=== PATIENT | female | born 1980 | race Caucasian/White ===

== ENCOUNTER 2020-07-08 13:47 | Emergency (ER) | payer SELFPAY ==
[~2020-07-08] VITALS: Ht 167.6 cm; Wt 60.0 kg
[2020-07-08] MEDS ORDERED: NALOXONE HCL 0.4 MG/ML 1ML VIAL IV ONE (14:15)
[2020-07-08] MEDS ORDERED: NALOXONE HCL 1 MG/ML 2ML VIAL IV ONE (14:45)
[2020-07-08 15:44] LABS: BASOPHILS % 0.3 % (0.0-2.0); EOSINOPHILS % 0.8 % (0.0-5.0); HEMATOCRIT. 42.7 % (36.0-48.0); HEMOGLOBIN. 14.9 g/dL (12.0-16.0); LYMPHOCYTES % 30.6 % (20.0-50.0); MEAN CORPUSCULAR HEMOGLOBIN 34.8 pg (28.0-32.0); MEAN CORPUSCULAR VOLUME 100.2 fL (81.0-99.0); MONOCYTES % 7.8 % (2.0-8.0); NEUTROPHILS % 60.5 % (40.0-76.0); PLATELET 292 x1000/uL (130-400); RED BLOOD CELL COUNT 4.26 mill/uL (4.2-5.4); RED CELL DISTRIBUTION WIDTH 12.8 % (11.6-14.6)
[2020-07-08 15:47] LABS: CHLORIDE 108 mEq/L (98-107)
[2020-07-09 02:41] VITALS: BP 134/78
== END 2020-07-09 02:42 | disposition home or self-care (01) ==
LOC: ER 13:47
DX: R41.0 Disorientation, unspecified (principal); T43.595A Adverse effect of other antipsychotics and neuroleptics, initial encounter; T42.6X5A Adverse effect of other antiepileptic and sedative-hypnotic drugs, initial encounter; G40.909 Epilepsy, unspecified, not intractable, without status epilepticus; F20.9 Schizophrenia, unspecified; F31.9 Bipolar disorder, unspecified; Y92.018 Other place in single-family (private) house as the place of occurrence of the external cause
CPT/HCPCS: 36415; 80048; 82962; 85025; 93005; 96374; 99285; J2310